=== PATIENT | male | born 1940 | race Caucasian/White ===

== ENCOUNTER 2016-08-19 20:25 | Emergency (ER) | payer MEDICARE ==
[~2016-08-19 20:25] MED LIST: ACET500CAP PO; AMB10 PO; AMBIEN CR12.5 MG PO; EFFEX75 PO; HEMOCYTET PO; LIPITOR20 PO; MULTIVITAMI1 PO; PRIN20 PO
== END 2016-08-19 20:45 | disposition home or self-care (01) ==
LOC: ER 20:25
DX: R21 Rash and other nonspecific skin eruption (principal); I10 Essential (primary) hypertension; F32.9 Major depressive disorder, single episode, unspecified; Z79.899 Other long term (current) drug therapy
CPT/HCPCS: 99282